=== PATIENT | male | born 1980 | race Caucasian/White ===

== ENCOUNTER 2021-09-28 17:40 | Emergency (ER) | payer OTHER ==
[~2021-09-28] VITALS: Ht 182.9 cm; Wt 92.1 kg
[~2021-09-28 17:40] MED LIST: IBUPROFEN; IBUPROFEN 600600 M1 PO
[2021-09-28 18:25] VITALS: BP 133/86
== END 2021-09-28 18:27 | disposition home or self-care (01) ==
LOC: M.ERS 17:40
DX: U07.1 COVID-19 (principal); Z90.49 Acquired absence of other specified parts of digestive tract